=== PATIENT | female | born 1990 | race Caucasian/White ===

== ENCOUNTER 2020-04-24 23:17 | Outpatient (CLI) | payer BC ==
[~2020-04-24] VITALS: Ht 160 cm; Wt 72.0 kg
[2020-04-24 23:51] VITALS: BP 110/71
== END 2020-04-25 01:00 | disposition home or self-care (01) ==
LOC: LDOP 23:17
PROVIDERS: ATTEND Obstetrics & Gynecology
DX: O26.893 Other specified pregnancy related conditions, third trimester (principal); R10.9 Unspecified abdominal pain; Z3A.40 40 weeks gestation of pregnancy
CPT/HCPCS: 59025

== ENCOUNTER 2020-04-25 06:30 | Inpatient (IN) | payer BC ==
[~2020-04-25] VITALS: Ht 160 cm; Wt 72.0 kg
[2020-04-25 06:40] VITALS: BP 120/69
[2020-04-25] MEDS ORDERED: OXYTOCIN 30U/ 0.9% NaCL 500ML 500 ML IV ONE ×2 (06:49→06:52)
[2020-04-25] MEDS ORDERED: D5%-LACTATED RINGERS 1,000 ML IV SCH (06:52)
[2020-04-25] MEDS ORDERED: PENICILLIN GK 5,000,000 UNITS in DEXTROSE 5% 100 ML IVPB ONE (07:00)
[2020-04-25] MEDS ORDERED: SODIUM CITRATE/CITRIC ACID 30 ML UDC PO PRN (07:00)
[2020-04-25] MEDS ORDERED: ONDANSETRON 2MG/ML, 2ML IVPush PRN (07:00)
[2020-04-25] MEDS ORDERED: TERBUTALINE 1 MG/ML, 1ML SQ PRN ×2 (07:00)
[2020-04-25] MEDS ORDERED: TERBUTALINE 1 MG/ML, 1ML IVPush PRN ×2 (07:00)
[2020-04-25] MEDS ORDERED: CALCIUM CARBONATE 500 MG TAB.CHEW PO PRN (07:00)
[2020-04-25] MEDS ORDERED: ALUMINUM/MAG/SIMETHICONE 30 ML UDC PO PRN (07:00)
[2020-04-25] MEDS ORDERED: SODIUM CHLORIDE FLUSH 10ML SYR IVF PRN (07:00)
[2020-04-25] MEDS ORDERED: FENTANYL PF 100 MCG/2ML IV PRN (07:00)
[2020-04-25] MEDS ORDERED: PLEASE ENTER HEIGHT AND WEIGHT MC SCH (07:00)
[2020-04-25] MEDS ORDERED: NEWBORN KIT ONE (07:12)
[2020-04-25] MEDS ORDERED: OXYTOCIN 30U/ 0.9% NaCL 500ML 500 ML ONE (07:12)
[2020-04-25] MEDS ORDERED: MISOPROSTOL 200 MCG TABLET ONE (07:12)
[2020-04-25] MEDS ORDERED: LIDOCAINE 1%, 20ML ONE (07:12)
[2020-04-25 07:19] LABS: MEAN CORPUSCULAR HEMOGLOBIN 31.2 pg (27.0-34.8); MEAN CORPUSCULAR HGB CONC 33.7 g/dL (32.4-35.8); MEAN CORPUSCULAR VOLUME 92.7 fL (80-100); MEAN PLATELET VOLUME 9.1 fL (7.4-10.4); PLATELET COUNT 192 x10^3/uL (130-400); RED BLOOD COUNT 4.38 x10^6/uL (3.82-5.3)
[2020-04-25] MEDS: LACTATED RINGERS 1,000 ML IV SCH ×3 (07:32→17:48)
[2020-04-25 07:37] LABS: BASOPHILS # (AUTO) 0.04 x10^3/uL (0-0.1); BASOPHILS % (AUTO) 0 % (0-1); EOSINOPHILS # (AUTO) 0.01 x10^3/uL (0-0.4); EOSINOPHILS % (AUTO) 0 % (1-7); LYMPHOCYTES # (AUTO) 1.34 x10^3/uL (1-3.4); LYMPHOCYTES % (AUTO) 8 % (22-44); MD SCAN; MONOCYTES # (AUTO) 0.47 x10^3/uL (0.2-0.8); MONOCYTES % (AUTO) 3 % (2-9); NEUTROPHILS # (AUTO) 16.02 x10^3/uL (1.8-6.8); NEUTROPHILS % (AUTO) 90 % (42-75)
[2020-04-25] MEDS: PENICILLIN GK 2,500,000 UNITS in DEXTROSE 5% 100 ML IVPB SCH ×3 (11:32→19:49)
[2020-04-25] MEDS ORDERED: FENTANYL PF 100 MCG/2ML ONE ×3 (14:30→19:45)
[2020-04-25] MEDS: FENTANYL PF 100 MCG/2ML IVPush PRN ×3 (14:33→19:48)
[2020-04-25] MEDS ORDERED: OXYTOCIN 30U/ 0.9% NaCL 500ML 500 ML IV PRN (14:58)
[2020-04-25] MEDS ORDERED: ONDANSETRON 2MG/ML, 2ML ONE (15:37)
[2020-04-25] MEDS ORDERED: FENTANYL/BUPIV./NS/PF 250 ML EPIDCONT ONE (20:37)
[2020-04-25] MEDS ORDERED: LIDOCAINE/PF 1.5% EPI 1:200K, 10 ML ONE (20:41)
[2020-04-25] MEDS ORDERED: FENTANYL/BUPIV./NS/PF 250 ML EPIDCONT SCH (21:19)
[2020-04-25] MEDS ORDERED: LACTATED RINGERS 1,000 ML IV SCH (21:19)
[2020-04-25] MEDS ORDERED: LACTATED RINGERS 1,000 ML IVBOLUS PRN (21:30)
[2020-04-25] MEDS ORDERED: EPHEDRINE 50 MG/ML, 1ML IVPush PRN (21:30)
[2020-04-25] MEDS ORDERED: NALOXONE 0.4 MG/ML, 1ML IVPush PRN (21:30)
[2020-04-26] MEDS ORDERED: OXYTOCIN 30U/ 0.9% NaCL 500ML 500 ML ONE ×2 (00:35→01:18)
[2020-04-26] MEDS ORDERED: OXYTOCIN 30U/ 0.9% NaCL 500ML 500 ML IV SCH (00:53)
[2020-04-26] MEDS ORDERED: IBUPROFEN 200 MG TABLET PO PRN (01:00)
[2020-04-26] MEDS ORDERED: BISACODYL 10 MG SUPP PR PRN (01:00)
[2020-04-26] MEDS ORDERED: ONDANSETRON 2MG/ML, 2ML IV PRN (01:00)
[2020-04-26] MEDS ORDERED: MISOPROSTOL 200 MCG TABLET PR PRN (01:00)
[2020-04-26] MEDS ORDERED: HYDROcodone/APAP 5/325 TABLET PO PRN (01:00)
[2020-04-26] MEDS ORDERED: OXYcodone/APAP 5/325MG TABLET PO PRN (01:00)
[2020-04-26] MEDS ORDERED: ACETAMINOPHEN 325 MG TABLET PO PRN (01:00)
[2020-04-26] MEDS ORDERED: IBUPROFEN 800 MG TABLET PO PRN (01:00)
[2020-04-26] MEDS ORDERED: RHOGAM FROM BLOOD BANK 1 NOTE EA IM/IV ONE (01:00)
[2020-04-26] MEDS ORDERED: ALUMINUM/MAG/SIMETHICONE 30 ML UDC ONE (01:36)
[2020-04-26] MEDS ORDERED: ALUMINUM/MAG/SIMETHICONE 30 ML UDC PO PRN (02:00)
[2020-04-26 02:35] VITALS: BP 105/64
[2020-04-26 05:45] VITALS: BP 100/64
[2020-04-26] MEDS ORDERED: IBUPROFEN 600 MG TABLET PO PRN (06:30)
[2020-04-26 07:30] VITALS: BP 96/61
[2020-04-26 08:08] LABS: MEAN CORPUSCULAR HEMOGLOBIN 31.2 pg (27.0-34.8); MEAN CORPUSCULAR VOLUME 94.7 fL (80-100); MEAN PLATELET VOLUME 8.4 fL (7.4-10.4); PLATELET COUNT 180 x10^3/uL (130-400); RED BLOOD COUNT 3.87 x10^6/uL (3.82-5.3); RED CELL DISTRIBUTION WIDTH 13.1 % (9.6-15.2)
[2020-04-26 09:00] LABS: BASOPHILS # (AUTO) 0.01 x10^3/uL (0-0.1); BASOPHILS % (AUTO) 0 % (0-1); EOSINOPHILS % (AUTO) 0 % (1-7); LYMPHOCYTES # (AUTO) 1.49 x10^3/uL (1-3.4); LYMPHOCYTES % (AUTO) 7 % (22-44); MD SCAN; MONOCYTES # (AUTO) 0.89 x10^3/uL (0.2-0.8); MONOCYTES % (AUTO) 4 % (2-9); NEUTROPHILS # (AUTO) 18.66 x10^3/uL (1.8-6.8); NEUTROPHILS % (AUTO) 89 % (42-75)
[2020-04-26] MEDS: DOCUSATE 100 MG CAPSULE PO SCH (10:45)
[2020-04-26] MEDS: PRENATAL VIT/IRON/FA 1 EACH TABLET PO SCH (10:45)
[2020-04-26 12:00] VITALS: BP 100/68
[2020-04-26 20:22] VITALS: BP 100/65
[2020-04-27] MEDS: DOCUSATE 100 MG CAPSULE PO SCH ×2 (00:19→08:27)
[2020-04-27 00:25] VITALS: BP 106/73
[2020-04-27 08:19] VITALS: BP 113/63
[2020-04-27] MEDS: PRENATAL VIT/IRON/FA 1 EACH TABLET PO SCH (08:27)
[2020-04-27] MEDS ORDERED: IBUP-1222 PO (09:43)
[2020-04-27] MEDS ORDERED: DOCU-131 PO (09:44)
== END 2020-04-27 13:05 | disposition home or self-care (01) | DRG 768 ==
LOC: LDOP 06:30 → LDIP 06:56 → 2NW 04-26 02:20
PROVIDERS: ADMIT Obstetrics & Gynecology; ATTEND Obstetrics & Gynecology
PROC: 0DQR0ZZ Repair Anal Sphincter, Open Approach (ICD-10-PCS; principal; 2020-04-26)
PROC: 10E0XZZ Delivery of Products of Conception, External Approach (ICD-10-PCS; 2020-04-26)
PROC: 3E0R3BZ Introduction of Anesthetic Agent into Spinal Canal, Percutaneous Approach (ICD-10-PCS; 2020-04-26)
PROC: 00HU33Z Insertion of Infusion Device into Spinal Canal, Percutaneous Approach (ICD-10-PCS; 2020-04-26)
DX: O69.81X0 Labor and delivery complicated by cord around neck, without compression, not applicable or unspecified (principal); Z37.0 Single live birth; O70.20 Third degree perineal laceration during delivery, unspecified; O77.0 Labor and delivery complicated by meconium in amniotic fluid; O99.824 Streptococcus B carrier state complicating childbirth; Z3A.40 40 weeks gestation of pregnancy; Z80.3 Family history of malignant neoplasm of breast
CPT/HCPCS: 36415; 85025; 86592; 86850; 86900; 87635; G0378; J2405; J2540; J3010; J2590; J7120